=== PATIENT | male | born 1975 | race Hispanic/Latino ===

== ENCOUNTER 2019-12-24 18:24 | Emergency (ER) | payer SELFPAY ==
[~2019-12-24] VITALS: Ht 182.9 cm; Wt 108.9 kg
--- OUTSIDE RECORDS SUMMARY | 2019-12-24 19:09 | XMS REPORT | Continuity of Care Document ---
Author Author [facility] Organization [facility] Address [address] [place] [address] Phone Unavailable Care Team Providers Care Special Education Coordinator Name Role Phone Unavailable Unavailable Problems This patient has no known problems. Allergies, Adverse Reactions, Alerts This patient has no known allergies or adverse reactions. Medications This patient has no known medications. Procedures This patient has no known procedures. Results This patient has no known results.
--- NOTE | 2019-12-24 22:20 | Emergency Department Note ---
History of Present Illnes History of Present Illness Chief Complaint: Hypertension History of Present Illness This is a 44 year old male who presents with interment episodes of pa lpitations, headache, and general malaise. He states the symptoms occur usually when he is under stress. Currently asymptomatic with no headache and no palpations. Taking BP @ home last 3 days and readings with SBP in 150s. LEACH not the worse of his live and < 5/10. usually right sided. No aura. No headache now. No cough, congestion, sore throat, runny nose, diarrhea, loss taste/smell or other COVID symptoms. Historian: Patient, Family Member Arrival Mode: Car Venetian Blind Tape Cutter Required: No Onset (how long ago): day(s) Severity: moderate Onset quality: unable to specify Duration (how long): day(s) Timing of current episode: intermittent Progression: waxing and waning Chronicity: new Context: Denies recent illness, Denies trauma/injury Relieving factors: none Exacerbating factors: other (stress - teenager kids) Associated symptoms: Reports denies other symptoms; Denies chest pain, Denies cough, Denies nausea/vomiting Treatments prior to arrival: none Past Medical/Family History Physician Review I have reviewed the patient's past medical and family history. Any updates have been documented here. Past Medical History Recent Fever: No Clinical Suspicion of Infectio: No New/Unexplained Change in Ment: No Past Medical History: Hypertension Other Medical History: +SMOKER HX MRSA (LEFT UPPER ARM) Other Surgery: LEFT ARM (ABSCESS NEEDED SX CLEAN OUT) Social History Smoking Cessation: Current every day smoker Counseling Performed: No Alcohol Use: Occasional Any Illegal Drug Use: No Physically hurt or threatened: No Other Any Pre-Existing Lines (PICC,: No Review of Systems Review of Systems Constitutional: Denies chills, Denies fever EENTM: Denies throat pain Cardiovascular: Reports palpitations; Denies chest pain Respiratory: Denies chest congestion, Denies pain with cough Gastrointestinal: Denies abdominal pain, Denies diarrhea Genitourinary: Denies dysuria, Denies hematuria Musculoskeletal: Denies joint pain Integumentary: Denies rash Neurological: Reports headache, Reports other (no speech problems, no vision problems); Denies numbness, Denies paresthesia, Denies tingling, Denies weakness Psychological: Reports anxiety Hematological/Lymphatic: Denies easy bleeding, Denies easy bruising Physical Exam Related Data Allergies: Coded Allergies: No Known Allergies (Unverified , 12/24/19) Triage Vital Signs Vital Signs Date Time Temp Pulse Resp B/P (MAP) Pulse Ox O2 Delivery O2 Flow Rate FiO2 12/24/19 18:49 98.4 80 16 180/99 99 Room Air Physical Exam CONSTITUTIONAL Constitutional: Present well-developed, Present well-nourished HENT HENT: Present normocephalic, Present atraumatic, Present oropharynx clear/moist, Present nose normal EYES Eyes: Reports PERRL, Reports conjunctivae normal NECK Neck: Present ROM normal PULMONARY Pulmonary: Present effort normal, Present breath sounds normal CARDIOVASCULAR Cardiovascular: Present regular rhythm, Present heart sounds normal, Present capillary refill normal, Present normal rate GASTROINTESTINAL Abdominal: Present soft, Present nontender, Present bowel sounds normal GENITOURINARY Genitourinary: Present exam deferred SKIN Skin: Present warm, Present dry MUSCULOSKELETAL Musculoskeletal: Present ROM normal NEUROLOGICAL Neurological: Present alert, Present oriented x 3, Present no gross motor or sensory deficits PSYCHOLOGICAL Psychological: Present mood/affect normal, Present judgement normal Results Laboratory Laboratory comments WBC 8.6, HGB 13.5, HCT 40.6, PLT 306, K 3.5, O/W CMP NEGATIVE, Troponin neg Procedures 12 Lead ECG Interpretation ECG Interpretation : ECG: ECG 1 Date: Dec 24, 2019 Rhythm: sinus rhythm BPM: 71 QRS axis: normal ST segments normal: Yes T waves normal: Yes Clinical Impression: normal ECG Pulse Oximetry Pulse ox probe location: digit - finger Initial readin Readin Actions taking: none Additional comments Impression: normal on RA Smoking Cessation Time spent with patient: 00:05 Patient acknowledges need for: Yes Additional comments Patient does not smoke, but dips tobacco. Patient made aware of dangers of nicotine and need to stop. Made aware of health consequences. Provided follow-up and gave printed material. Assessment & Plan Medical Decision Making MDM Patient presented with 180/99 BP and BP 139/79 at D/C. Patient was taking cholesterol meds and lost to followup. Has negative workup in ED for intermittent palpations associated with headache. Stressed need for patient to follow up with PCP. Differential includes, but not limited to arrhythmia, ACS, DE, PE, SAH, tension LEACH, cluster LEACH. Assessment & Plan Final Impression: (1) Palpitations (2) Headache (3) Tobacco chew use Depart Disposition: HOME, SELF-CARE Last Vital Signs Date Time Temp Pulse Resp B/P (MAP) Pulse Ox O2 Delivery O2 Flow Rate FiO2 12/24/19 20:32 78 18 139/79 99 Room Air 12/24/19 18:49 98.4 DON BOOTH MD Dec 24, 2019 20:56
== END 2019-12-24 20:40 | disposition home or self-care (01) ==
LOC: FSED 19:06
DX: R00.2 Palpitations (principal); R51 Headache; I10 Essential (primary) hypertension; F17.220 Nicotine dependence, chewing tobacco, uncomplicated
CPT/HCPCS: 80053; 82553; 84484; 85025; 93005; 99283